=== PATIENT | female | born 2000 | race Caucasian/White ===

== ENCOUNTER 2019-05-10 20:33 | Emergency (ER) | payer SELFPAY ==
--- NOTE | 2019-05-10 20:52 | UC ---
General HPI - HPI Summary HPI Summary: 19 yo WFh/o ADD on Adderall p/w acute left hand and foot numbness associated with left sided chest pressure and mild SOB x 1 week. She was in middle of her finals and takes Adderall for her ADD and admits to having anxiety issues but takes no medication for it. Denies recent illnesses, URI sx,f/c/n/v/d or unstable gait - History of Current Complaint Stated Complaint: SHORT OF BREATH Time Seen by Provider: 05/10/19 20:45 Hx Obtained From: Patient Onset/Duration: Sudden Onset, Lasting Days Onset Severity: Moderate Current Severity: Moderate Associated Signs & Symptoms: Positive: Chest Pain - Allergy/Home Medications Allergies/Adverse Reactions: Allergies Allergy/AdvReac Type Severity Reaction Status Date / Time No Known Allergies Allergy Verified 05/10/19 21:09 Home Medications: Home Medications Dextroamphetamine/Amphetamine [Adderall 10 mg-] 10 mg PO DAILY 05/10/19 [ History Confirmed 05/10/19] PMH/Surg Hx/FS Hx/Imm Hx - Additional Past Medical History Additional PMH: ADD, takes adderall Previously Healthy: Yes - Family History Known Family History: Positive: Non-Contributory - Social History Occupation: Student Lives: With Family Review of Systems All Other Systems Reviewed And Are Negative: Yes Constitutional: Positive: Negative Skin: Positive: Negative Eyes: Negative: Blurred Vision, Diplopia ENT: Positive: Negative Respiratory: Positive: Shortness Of Breath Cardiovascular: Positive: Palpitations - intermittent Genitourinary: Positive: Negative Motor: Negative: Weakness Neurovascular: Positive: Negative Musculoskeletal: Positive: Negative Neurological/Mental Status: Positive: Paresthesia, Numbness Psychological: Positive: Negative Is Patient Immunocompromised?: No Physical Exam - Summary Physical Exam Summary: Gen: NAD Eye Exam: Normal Eyes: Positive: Conjunctiva Clear ENT: Normal ENT inspection Neck: Supple Respiratory: Lungs clear, Normal breath sounds. Cardiovascular Exam: Normal, RRR, S1, S2 Abdomen: NT/ND Musculoskeletal Exam: Normal Neurological Exam: Normal, CN 2-12 grossly intact, no focal neuro deficits, decreased sensation in RUE, RLE compared to left. motor strength intact 5/5 B/L , NEG pronator drift, NO facial asymmetry Psychological Exam: Normal Skin Exam: Normal Triage Information Reviewed: Yes Vital Signs Reviewed: Yes Course/Dx - Course Course Of Treatment: EKG WNL, but new onset of numbness of right hand and RLE persists and have been for the last few days, can it be atypical migraine vs electrolyte abnormality vs neuro pathology? Advised pt tp ED for further w/u, pt declined ambulance transfer and signed AMA , stated her friend will drive her to [facility] [place] - Diagnoses Provider Diagnosis: Numbness and tingling in right hand, Numbness of right lower extremity Discharge ED - Sign-Out/Discharge Documenting (check all that apply): Patient Departure All imaging exams completed and their final reports reviewed: No Studies - Discharge Plan Condition: Stable Disposition: AGAINST MEDICAL ADVICE Additional Instructions: advised to go to ED now - Billing Disposition and Condition Condition: STABLE Disposition: Against Medical Advice
[2019-05-10 21:09] VITALS: BP 120/78
== END 2019-05-10 21:12 | disposition left against medical advice (07) ==
LOC: UCEAST 20:33
DX: R20.0 Anesthesia of skin (principal); R20.2 Paresthesia of skin; R06.02 Shortness of breath; R00.2 Palpitations
CPT/HCPCS: 99202; G0463

== ENCOUNTER 2019-05-10 21:31 | Emergency (ER) | payer OTHER ==
--- NOTE | 2019-05-11 00:09 | ED ---
HPI Chest Pain - HPI Summary HPI Summary: Patient complains of chest tightness, mild exertional SOB 2 days, numbness and tingling in toes of right foot radiating to right calf5 days, numbness and tingling in forth and fifth digits of right hand starting today. Denies prior history of same symptoms. Denies trauma, fever, cough, sore throat, N/V/D, abdominal pain, change in urine, change in BM. Denies history of blood clots, recent surgery or trauma, recent history of long travel, estrogen supplements OCPs, , cancer, hemoptysis. Medical history is ADD, anemia - History of Current Complaint Chief Complaint: EDChestWallPain Time Seen by Provider: 05/10/19 23:53 Hx Obtained From: Patient Onset/Duration: Started Days Ago Timing: Constant Initial Severity: Mild Current Severity: None Pain Intensity: 0 Pain Scale Used: 0-10 Numeric Chest Pain Location: Mid Sternal Chest Pain Radiates: No Character: Tightness Aggravating Factor(s): Nothing Alleviating Factor(s): Nothing Associated Signs and Symptoms: Positive: Chest Pain, Tingling, Shortness of Breath - Allergy/Home Medications Allergies/Adverse Reactions: Allergies Allergy/AdvReac Type Severity Reaction Status Date / Time No Known Allergies Allergy Verified 05/11/19 00:55 Home Medications: Home Medications Dextroamphetamine/Amphetamine [Adderall 10 mg-] 10 mg PO DAILY 05/10/19 [ History Confirmed 05/11/19] PMH/Surg Hx/FS Hx/Imm Hx Endocrine/Hematology History: Denies: Hx Anticoagulant Therapy Cardiovascular History: Denies: Hx Pacemaker/ICD History: Denies: Hx Dialysis Sensory History: Denies: Hx Eye Prosthesis Opthamlomology History: Denies: Hx Legally Blind EENT History: Denies: Hx Deafness Infectious Disease History: No Infectious Disease History: Denies: Traveled Outside the [place] in Last 30 Days - Family History Known Family History: Positive: Non-Contributory - Social History Alcohol Use: None Substance Use Type: Reports: None Smoking Status (MU): Never Smoked Tobacco Review of Systems Constitutional: Negative Eyes: Negative ENT: Negative Positive: Shortness Of Breath Gastrointestinal: Negative Genitourinary: Negative Musculoskeletal: Negative Skin: Negative Neurological/Mental Status: Negative Positive: Paresthesia Psychological: Normal All Other Systems Reviewed And Are Negative: Yes Physical Exam - Summary Physical Exam Summary: Pulses, motor and sensation intact in right foot and right hand. Overall Neuro exam normal. Lung sounds clear to auscultation bilaterally. Chest tightness not reproducible. Calfs soft nontender bilaterally. Triage Information Reviewed: Yes Vital Signs On Initial Exam: Initial Vitals Temp Pulse Resp BP Pulse Ox 97.7 F 83 15 131/83 99 05/10/19 21:38 05/10/19 21:38 05/10/19 21:38 05/10/19 21:38 05/10/19 21:38 Vital Signs Reviewed: Yes Appearance: Positive: Well-Appearing Skin: Positive: Warm Head/Face: Positive: Normal Head/Face Inspection Eyes: Positive: Normal Neck: Positive: Supple Respiratory/Lung Sounds: Positive: Clear to Auscultation Cardiovascular: Positive: Normal Abdomen Description: Positive: Nontender Musculoskeletal: Positive: Normal Neurological: Positive: Normal Psychiatric: Positive: Normal AVPU Assessment: Alert - [place] Coma Scale Best Eye Response: 4 - Spontaneous Best Motor Response: 6 - Obeys Commands Best Verbal Response: 5 - Oriented Coma Scale Total: 15 Procedures - Sedation Patient Received Moderate/Deep Sedation with Procedure: No Diagnostics - Vital Signs Vital Signs Temp Pulse Resp BP Pulse Ox 05/10/19 21:38 97.7 F 83 15 131/83 99 - Laboratory Result Diagrams: 05/11/19 00:14 05/11/19 00:14 Lab Statement: Any lab studies that have been ordered have been reviewed, and results considered in the medical decision making process. Chest Pain Course/Dx - Course Course Of Treatment: Patient complains of chest tightness, mild exertional SOB 2 days, numbness and tingling in toes of right foot 5 days, numbness and tingling in forth and fifth digits of right hand starting today. Denies prior history of same symptoms. Denies trauma, fever, cough, sore throat, N/V/D, abdominal pain, change in urine, change in BM. Denies history of blood clots, recent surgery or trauma, recent history of long travel, estrogen supplements OCPs, , cancer, hemoptysis. Medical history is ADD, anemia. Vital signs within normal limits. Labs unremarkable. D-dimer negative. Chest x-ray negative. EKG sinus rhythm, heart rate of 75, normal P axis. Patient returning home to [place] in 1 week. Advised to follow-up with primary care if symptoms persist. Also advised to return to the ED in the meantime if symptoms worsen. - Diagnoses Provider Diagnoses: Paresthesia, Chest tightness, Exertional shortness of breath Discharge ED - Sign-Out/Discharge Documenting (check all that apply): Patient Departure - Discharge Plan Condition: Stable Disposition: HOME Patient Education Materials: Paresthesia (ED), Dyspnea (ED) Referrals: No Primary Care Phys,NOPCP [Primary Care Provider] - [facility] [Outside] Additional Instructions: Take ibuprofen 400 mg every 6 hours for 3 days. Use inhaler as directed for chest tightness. Follow-up with [facility] for further evaluation. Return to the ED for any new or worsening symptoms. - Billing Disposition and Condition Condition: STABLE Disposition: Home
[2019-05-11 00:23] LABS: ABS Basophils 0.1 10^3/ul (0-0.2); ABS Eosinophils 0.2 10^3/ul (0-0.6); ABS Lymphocytes 3.1 10^3/ul (1.0-4.8); ABS Monocytes 0.6 10^3/ul (0-0.8); ABS Neutrophils 3.3 10^3/ul (1.5-7.7); Eosinophil % 2.3 %; Hematocrit 37 % (35-47); Hemoglobin 12.1 g/dL (12.0-16.0); Lymphocyte % 42.7 %; Mean Corpuscular HGB Conc 33 g/dL (31-36); Mean Corpuscular Hemoglobin 27 pg (27-31); Mean Corpuscular Volume 81 fL (80-97); Mean Platelet Volume 8.5 fL (7.4-10.4); Platelet Count 247 10^3/uL (150-450); Red Blood Count 4.48 10^6 /uL (3.70-4.87); Red Cell Distribution Width 15 % (10-15); White Blood Count 7.2 10^3/uL (3.5-10.8)
[2019-05-11 00:45] LABS: ALT 9 U/L (7-52); AST 13 U/L (13-39); Albumin 4.4 g/dL (3.2-5.2); Albumin/Globulin Ratio 1.8 (1-3); Alkaline Phosphatase 38 U/L (34-104); Anion Gap 6 mmol/L (2-11); BUN/Creatinine Ratio 11.8 (8-20); Blood Urea Nitrogen 9 mg/dL (6-24); C Reactive Protein < 1.00 mg/L (<8.01); CO2 Carbon Dioxide 26 mmol/L (22-32); Calcium 9.9 mg/dL (8.6-10.3); Chloride 107 mmol/L (101-111); EGFR African American 117.4 (>60); Globulin 2.4 g/dL (2-4); Glucose 95 mg/dL (70-100); Magnesium 2.2 mg/dL (1.9-2.7); Potassium 3.7 mmol/L (3.5-5.0); Sodium 139 mmol/L (135-145); Total Protein 6.8 g/dL (6.4-8.9)
[2019-05-11 00:50] LABS: Urine Appearance Clear; Urine Bilirubin Negative (Negative); Urine Blood 2+ (Negative); Urine Color Yellow; Urine Glucose Negative (Negative); Urine Ketones Negative (Negative); Urine Nitrite Negative (Negative); Urine Protein Negative (Negative); Urine Specific Gravity 1.016 (1.010-1.030); Urine Urobilinogen Negative (Negative)
[2019-05-11 00:51] LABS: HCG Pregnancy < 0.60 mIU/mL
[2019-05-11 00:54] LABS: Urine Bacteria Absent (Absent); Urine Red Blood Cell 2+(6-10/hpf) (Absent); Urine Squamous Epithelial Cell Present (Absent); Urine White Blood Cell Trace(0-5/hpf) (Absent)
[2019-05-11] MEDS ORDERED: Albuterol HFA INHALER* 8 gm MDI INH ONE (01:12)
[2019-05-11 01:22] LABS: TSH (Thyroid Stimulating Horm) 0.98 mcIU/mL (0.34-5.60)
[2019-05-11 02:01] VITALS: BP 111/78
== END 2019-05-11 02:00 | disposition home or self-care (01) ==
LOC: ED 21:31
DX: R07.89 Other chest pain (principal); R20.2 Paresthesia of skin; R06.09 Other forms of dyspnea; F98.8 Other specified behavioral and emotional disorders with onset usually occurring in childhood and adolescence; Z79.899 Other long term (current) drug therapy
CPT/HCPCS: 36415; 71045; 80053; 81003; 81015; 82607; 83735; 84443; 84484; 84702; 85025; 85379; 86140; 87086; 93005; 99283; A9270-GY